=== PATIENT | female | born 1980 | race Caucasian/White ===

== ENCOUNTER → 2016-10-21 | Outpatient (CLI) | payer MEDICAID | END | disposition home or self-care (01) | LOC: LABWHC1 17:10 | PROVIDERS: ATTEND Psychiatry & Neurology Neurology | DX: Z00.8 Encounter for other general examination (principal); T45.1X5D Adverse effect of antineoplastic and immunosuppressive drugs, subsequent encounter | CPT/HCPCS: 36415; 86480 ==

== ENCOUNTER → 2016-11-28 | Outpatient (CLI) | payer MEDICAID ==
[2016-11-28 17:02] LABS: Basophils # (A) 0.1 k/uL (0-0.2); Basophils % (A) 1 %; CH 29.1; CHCM 32.2; Eosinophils # (A) 0.1 k/uL (0-0.7); Eosinophils % (A) 1 %; HCT 42.5 % (34.0-46.0); HDW 2.43; HGB 13.5 gm/dL (11.4-16.0); Luc # (Auto) 0.17; Luc % (Auto) 2; Lymphocytes # (A) 2.5 k/uL (1.0-4.8); Lymphocytes % (A) 34 %; MCH 28.7 pg (25.0-35.0); MCHC 31.7 g/dL (31.0-37.0); MCV 90.7 fL (80.0-100.0); Mean Platelet Volume 6.3; Monocytes # (A) 0.4 k/uL (0-1.0); Monocytes % (A) 6 %; Neutrophils # (A) 4.1 k/uL (1.3-7.7); Neutrophils % (A) 56 %; RBC 4.69 m/uL (3.80-5.40); RDW 12.9 % (11.5-15.5); WBC 7.4 k/uL (3.8-10.6); WBC (Perox) 7.84
[2016-11-28 17:21] LABS: ALT 27 U/L (9-52); AST 17 U/L (14-36); Alkaline Phosphatase 80 U/L (38-126); Anion Gap 13 mmol/L; Blood Urea Nitrogen 15 mg/dL (7-17); Calcium 9.8 mg/dL (8.4-10.2); Carbon Dioxide 24 mmol/L (22-30); Chloride 105 mmol/L (98-107); Glucose 95 mg/dL (74-99); Non-African American GFR(MDRD) >60 (>60 ml/min/1.73 sqM); Potassium 4.2 mmol/L (3.5-5.1); Sodium 142 mmol/L (137-145); Total Bilirubin 0.6 mg/dL (0.2-1.3); Total Protein 8.2 g/dL (6.3-8.2)
== END ==
LOC: LABWHC1 16:43
PROVIDERS: ATTEND Psychiatry & Neurology Neurology
DX: Z51.81 Encounter for therapeutic drug level monitoring (principal); Z79.899 Other long term (current) drug therapy
CPT/HCPCS: 36415; 80053; 85025

== ENCOUNTER → 2016-12-31 | Outpatient (CLI) | payer MEDICAID ==
[2016-12-31 17:33] LABS: CH 28.9; CHCM 32.7; HCT 40.7 % (34.0-46.0); HGB 13.3 gm/dL (11.4-16.0); MCHC 32.7 g/dL (31.0-37.0); MCV 88.6 fL (80.0-100.0); Mean Platelet Volume 6.6; RBC 4.59 m/uL (3.80-5.40); RDW 13.3 % (11.5-15.5); WBC 8.4 k/uL (3.8-10.6)
--- NOTE | 2016-12-31 17:39 | XR ---
EXAMINATION TYPE: XR chest 2V DATE OF EXAM: 12/31/2016 5:14 PM COMPARISON: NONE HISTORY: New medication for MS. Chest pain. TECHNIQUE: Frontal and lateral views of the chest are obtained. FINDINGS: Heart and mediastinum are normal. Lungs are clear. Diaphragm is normal. Bony thorax and so ft tissues appear normal. IMPRESSION: Normal chest
[2016-12-31 17:42] LABS: ALT 24 U/L (9-52); AST 17 U/L (14-36)
== END | disposition home or self-care (01) ==
LOC: RADXRMAIN 16:55
PROVIDERS: ATTEND Psychiatry & Neurology Neurology
DX: T50.905A Adverse effect of unspecified drugs, medicaments and biological substances, initial encounter (principal)
CPT/HCPCS: 71020; 84450; 84460; 85027

== ENCOUNTER → 2017-01-31 | Outpatient (CLI) | payer MEDICAID ==
[2017-01-31 11:21] LABS: CH 28.9; CHCM 32.5; HCT 41.3 % (34.0-46.0); HDW 2.52; HGB 13.7 gm/dL (11.4-16.0); MCH 29.7 pg (25.0-35.0); MCHC 33.2 g/dL (31.0-37.0); MCV 89.5 fL (80.0-100.0); Mean Platelet Volume 6.1; RBC 4.61 m/uL (3.80-5.40); RDW 13.1 % (11.5-15.5); WBC 6.4 k/uL (3.8-10.6)
[2017-01-31 11:39] LABS: ALT 26 U/L (9-52); AST 16 U/L (14-36)
== END | disposition home or self-care (01) ==
LOC: LABWHC1 10:40
PROVIDERS: ATTEND Psychiatry & Neurology Neurology
DX: T78.8XXA Other adverse effects, not elsewhere classified, initial encounter (principal)
CPT/HCPCS: 36415; 84450; 84460; 85027

== ENCOUNTER → 2017-03-13 | Outpatient (CLI) | payer MEDICAID ==
[2017-03-13 16:29] LABS: CH 29.2; CHCM 31.5; HCT 40.9 % (34.0-46.0); HDW 2.35; HGB 12.8 gm/dL (11.4-16.0); MCH 29.1 pg (25.0-35.0); MCHC 31.2 g/dL (31.0-37.0); MCV 93.3 fL (80.0-100.0); Mean Platelet Volume 6.8; RBC 4.39 m/uL (3.80-5.40); RDW 13.8 % (11.5-15.5); WBC 7.3 k/uL (3.8-10.6)
[2017-03-13 16:46] LABS: ALT 36 U/L (9-52); AST 20 U/L (14-36)
== END | disposition home or self-care (01) ==
LOC: LABWHC1 16:17
PROVIDERS: ATTEND Psychiatry & Neurology Neurology
DX: T45.1X5S Adverse effect of antineoplastic and immunosuppressive drugs, sequela (principal)
CPT/HCPCS: 36415; 84450; 84460; 85027

== ENCOUNTER → 2017-04-14 | Outpatient (CLI) | payer MEDICAID ==
[2017-04-14 10:33] LABS: CH 28.9; HCT 40.2 % (34.0-46.0); HDW 2.31; HGB 12.9 gm/dL (11.4-16.0); MCH 29.2 pg (25.0-35.0); MCHC 32.1 g/dL (31.0-37.0); Mean Platelet Volume 6.9; RBC 4.41 m/uL (3.80-5.40); RDW 13.3 % (11.5-15.5); WBC 6.6 k/uL (3.8-10.6)
[2017-04-14 10:38] LABS: ALT 27 U/L (9-52); AST 16 U/L (14-36)
== END | disposition home or self-care (01) ==
LOC: LABWHC1 10:04
PROVIDERS: ATTEND Psychiatry & Neurology Neurology
DX: T45.1X5A Adverse effect of antineoplastic and immunosuppressive drugs, initial encounter (principal)
CPT/HCPCS: 36415; 84450; 84460; 85027

== ENCOUNTER → 2017-06-12 | Outpatient (CLI) | payer MEDICAID ==
--- NOTE | 2017-06-15 12:21 | MR ---
EXAMINATION TYPE: MR brain wo/w con DATE OF EXAM: 06/12/2017 COMPARISON: 06/14/2015 HISTORY: MS follow up to check on response to medication TECHNIQUE: Multiplanar, multisequence images of the brain and brainstem is performed without and with IV contras t, utilizing 9 mL intravenous Gadavist . FINDINGS: There is no evidence of acute ischemia. Area of abnormal signal within the left parietal occipital junction is stable from the previous exam. Changes of chronic sinusitis. Intraorbital structures have a normal appearance. Midline structures. C raniocervical junction maintained. Sella turcica has a normal appearance. There is no enhancing lesions or mass. Basilar artery is somewhat diminutive in size. Cavernous sinus enhances normally. Dural venous sinuses enhance normally. White matter: Small focus of abnormal signal in the left temporal lobe is stable. No other sizable ar eas of abnormal signal within the visualized white matter. IMPRESSION: 1. Area of abnormal signal involving the left parietal occipital junction is stable. Differential steven gnosis would include demyelinating disease. Remote ischemia also a consideration as there may be slig ht ex vacuo dilation of the lateral ventricle 2. Single less than 5 mm nonspecific area of abnormal white matter signal in the left temporal lobe i s stable. No enhancing lesions or masses. 3. Changes of chronic sinusitis.
== END | disposition home or self-care (01) ==
LOC: RADMRIMAIN 20:58
PROVIDERS: ATTEND Psychiatry & Neurology Neurology
DX: R90.82 White matter disease, unspecified (principal); R93.0 Abnormal findings on diagnostic imaging of skull and head, not elsewhere classified; G35 Multiple sclerosis
CPT/HCPCS: 70553; A9581

== ENCOUNTER → 2017-11-21 | Outpatient (CLI) | payer MEDICAID ==
[2017-11-21 08:40] LABS: ALT 24 U/L (9-52); AST 16 U/L (14-36); Cholesterol 182 mg/dL (<200); Glucose 90 mg/dL (74-99); HDL Cholesterol 62 mg/dL (40-60); LDL Cholesterol,Calculated 108 mg/dL (0-99); Triglycerides 61 mg/dL (<150)
== END | disposition home or self-care (01) ==
LOC: LABWHC1 07:50
PROVIDERS: ATTEND Psychiatry & Neurology Neurology
DX: H35.60 Retinal hemorrhage, unspecified eye (principal); G35 Multiple sclerosis; Z79.899 Other long term (current) drug therapy
CPT/HCPCS: 36415; 80061; 82947; 84450; 84460

== ENCOUNTER → 2018-11-19 | Outpatient (CLI) | payer MEDICAID ==
--- NOTE | 2018-11-19 16:09 | US ---
EXAMINATION TYPE: US pelvic complete DATE OF EXAM: 11/19/2018 COMPARISON: NONE CLINICAL HISTORY: K52.9 Chronic diarrhea. TECHNIQUE: Transabdominal (TA). Date of LMP: 11/09/2018 EXAM MEASUREMENTS: Uterus: 9.1 X 5.3 X 6.4 cm Endometrial Stripe: 0.8 cm Right Ovary: 3.1 X 1.6 X 2.9 cm Left Ovary: 3.2 X 3.1 X 2.7 cm 1. Uterus: Anteverted small posterior fibroid measures 1.3 x 1.1 x 1.4 cm 2. Endometrium: wnl 3. Right Ovary: wnl 4. Left Ovary: wnl 5. Bilateral Adnexa: wnl 6. Posterior cul-de-sac: no free fluid IMPRESSION: 1. Small uterine fibroid.
--- NOTE | 2018-11-19 16:15 | US ---
EXAMINATION TYPE: US abdomen complete DATE OF EXAM: 11/19/2018 COMPARISON: NONE CLINICAL HISTORY: K52.9 Chronic diarrhea. EXAM MEASUREMENTS: Liver Length: 14.0 cm Gallbladder Wall: 0.2 cm CBD: 0.6 cm Spleen: 11.1 cm Right Kidney: 10.8 x 5.5 x 5.9 cm Left Kidney: 10.7 x 6.3 x 5.5 cm Pancreas: wnl Liver: wnl Gallbladder: No stones seen Evidence for sonographic Mckeon's sign: No CBD: wnl Spleen: wnl Right Kidney: No hydronephrosis or masses seen Left Kidney: No hydronephrosis or masses seen Upper IVC: wnl Abd Aorta: wnl IMPRESSION: 1. Abdomen ultrasound as visualized is unremarkable.
== END | disposition home or self-care (01) ==
LOC: RADUSWWP 06:56
PROVIDERS: ATTEND Family Medicine
DX: D25.9 Leiomyoma of uterus, unspecified (principal); K52.9 Noninfective gastroenteritis and colitis, unspecified
CPT/HCPCS: 76700; 76856

== ENCOUNTER → 2019-02-26 | Outpatient (CLI) | payer MEDICAID ==
[2019-02-26 11:08] LABS: Basophils # (A) 0.1 k/uL (0-0.2); Basophils % (A) 1 %; Eosinophils # (A) 0.1 k/uL (0-0.7); Eosinophils % (A) 2 %; HCT 40.3 % (34.0-46.0); HGB 12.4 gm/dL (11.4-16.0); Lymphocytes # (A) 1.8 k/uL (1.0-4.8); Lymphocytes % (A) 35 %; MCH 28.3 pg (25.0-35.0); MCHC 30.8 g/dL (31.0-37.0); MCV 91.8 fL (80.0-100.0); Mean Platelet Volume 6.6; Monocytes # (A) 0.3 k/uL (0-1.0); Monocytes % (A) 6 %; Neutrophils # (A) 2.7 k/uL (1.3-7.7); Neutrophils % (A) 54 %; Platelet Count 323 k/uL (150-450); RBC 4.39 m/uL (3.80-5.40); RDW 13.7 % (11.5-15.5)
[2019-02-26 16:07] LABS: Albumin 4.4 g/dL (3.80-4.90); Albumin/Globulin Ratio 2.32 (1.60-3.17); Anion Gap 4.9 mmol/L (4.00-12.00); Calcium 9.4 mg/dL (8.7-10.3); Carbon Dioxide 24.1 mmol/L (21.6-31.8); Globulin 1.9 g/dL (1.6-3.3); Potassium 4.1 mmol/L (3.5-5.5); Total Bilirubin 0.5 mg/dL (0.3-1.2); Total Protein 6.3 g/dL (6.2-8.2)
== END | disposition home or self-care (01) ==
LOC: LABWHC1 10:36
PROVIDERS: ATTEND Psychiatry & Neurology Neurology
DX: G35 Multiple sclerosis (principal); E55.9 Vitamin D deficiency, unspecified; T50.905A Adverse effect of unspecified drugs, medicaments and biological substances, initial encounter
CPT/HCPCS: 36415; 80053; 82306; 82607; 85025

== ENCOUNTER → 2019-07-19 | Outpatient (CLI) | payer MEDICAID ==
[2019-07-19 13:38] VITALS: BP 100/61; PULSE 73; RESP 16; TEMP 97.8; BMI 27.7
--- NOTE | 2019-07-19 14:31 | P.HPOB ---
History of Present Illness H&P Date: 07/19/19 Chief Complaint: The patient is here for her routine gynecologic exam and ma mmogram. This is a 39-year-old with an LMP of 07/05/2019. Her is status post vasectomy. The patient is here to establish with this office. Her last pelvic exam was about 2014. She is complaining of heavier menstrual flow on days 3 and 4 of her menstrual period and she becomes very fatigued on these days. Menses are regular every month lasting 6 days. She does occasionally pass clots. She is otherwise without complaints. Review of Systems The patient has lost 14 pounds over the last year with dietary changes. She denies respiratory, cardiac, or G.I. problems. Past Medical History Additional Past Medical History / Comment(s): Multiple sclerosis. Menstrually related migraine headaches. Mitral valve prolapse. 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 She has no other history of STDs. Uterine fibroid measuring 1.4 cm(11/19/18). History of Any Multi-Drug Resistant Organisms: None Reported Past Surgical History: Breast Surgery Additional Past Surgical History / Comment(s): Breast biopsies. Past Psychological History: No Psychological Hx Reported Smoking Status: Never smoker Past Alcohol Use History: None Reported Past Drug Use History: None Reported Additional History: She has been since 2009. 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 - Past Family History Sister(s) Family Medical History: Cancer Additional Family Medical History / Comment(s): Brain cancer. Father Family Medical History: Diabetes Mellitus Additional Family Medical History / Comment(s): Paternal grandmother had a gynecologic cancer, either cervical cancer or ovarian cancer. Mother Family Medical History: Hyperlipidemia Medications and Allergies Home Medications Medication Instructions Recorded Confirmed Type Amoxicillin 500 mg PO DAILY PRN 07/19/19 07/19/19 History Baclofen 10 mg PO HS 07/19/19 07/19/19 History Cholecalciferol (Vitamin D3) 2,000 unit PO DAILY 07/19/19 07/19/19 History [Vitamin D3] Ibuprofen 800 mg PO DAILY 07/19/19 07/19/19 History Propranolol [Inderal] 20 mg PO BID 07/19/19 07/19/19 History Teriflunomide [Aubagio] 7 mg PO DAILY 07/19/19 07/19/19 History Topiramate [Topamax] 50 mg PO HS 07/19/19 07/19/19 History Zquil 1 tab PO HS 07/19/19 07/19/19 History Allergies Allergy/AdvReac Type Severity Reaction Status Date / Time No Known Allergies Allergy Unverified 07/19/19 13:38 Exam Vital Signs Temp Pulse Resp BP Pulse Ox 07/19/19 13:32 97.8 F 73 16 100/61 100 Intake and Output 07/18/19 07/19/19 07/19/19 22:59 06:59 14:59 Other: Weight 90.265 kg Height 5 feet 11 inches, weight 199 pounds, BMI 27.8. This is a well-developed well-nourished white female who is alert and oriented times 3 in no acute distress. HEENT: Within normal limits. NECK: Supple without mass or thyromegaly. CHEST AND LUNGS: Clear to auscultation. HEART: Regular rate and rhythm. BREASTS: Are without mass or discharge. AXILLARY EXAM: Negative for adenopathy. BACK: Negative for CVA tenderness. ABDOMEN: Soft, nontender, without palpable masses. PELVIC EXAM: Normal external genitalia. Cervix and vagina appear normal. There is no unusual discharge. There is no evidence of prolapse. The uterus is anteverted, nongravid size and nontender. There are no palpable adnexal masses or tenderness. RECTAL EXAM: negative for mass or tenderness and is negative for occult blood. EXTREMITIES: Nontender. Additional studies: Pelvic ultrasound done on 11/19/2018 showed a 1.4 cm uterine fibroid. IMPRESSION: 1. 39-year-old female whose is status post vasectomy with normal gynecologic exam. 2. Mild hypermenorrhea with resulting fatigue on the heavy flow days. 3. History of uterine fibroid. PLAN: 1. Pap smear was performed. 2. Self breast awareness was discussed with the patient. 3. Screening mammogram will be done today. 4. Trial of meclofenamate sodium 100 mg by mouth 3 times a day when necessary for heavy menstrual flow off to 6 days per cycle. The prescription will be sent to [facility]. If after 3 months she is not noticing significant improvement, she was instructed to call and we can tell about other options including endometrial ablation. 5. We have discussed the option of endometrial ablation. The ACOG FAQ handout on endometrial ablation will be given to the patient. 6. She was advised to return in one year for her annual well woman exam.
--- NOTE | 2019-07-21 10:54 | MM ---
Reason for exam: screening (asymptomatic). Last mammogram was performed 5 years and 4 months ago. History: Family history of breast cancer. Benign US RT VAD breast biopsy of the right breast, August 29, 2013. Benign US LT VAD breast biopsy of the left breast, August 29, 2013. Benign excisional biopsy of the right breast, July 25, 1998. Took hormonal contraceptives for 15 years beginning at age 16. Physical Findings: A clinical breast exam by your physician is recommended on an annual basis and results should be correlated with mammographic findings. MG Screening Mammo w CAD Bilateral CC, MLO, and XCCL view(s) were taken. Prior study comparison: March 22, 2014, bilateral MG diagnostic mammo w CAD TIFFANIE. August 15, 2013, CAD bilateral diagnostic mammogram. The breast tissue is extremely dense which could obscure a lesion on mammography. Previous mammotome biopsy in the left breast. No significant changes when compared with prior studies. ASSESSMENT: Benign, BI-RAD 2 RECOMMENDATION: Routine screening mammogram of both breasts in 1 year.
--- NOTE | 2019-07-26 18:37 | P.PN ---
Progress Note - Text Progress Note Date: 07/26/19 OUTPATIENT FOLLOW-UP NOTE TEST(S)/RESULTS: test results from 07/19/2019 include negative Pap smear and benign mammogram. METHOD OF NOTIFICATION: the patient was notified by phone. PATIENT COMMENTS: the patient is happy to hear these results. DIAGNOSIS: negative Pap smear and benign mammogram. DISCUSSION: PLAN: the patient is to return in one year for her annual well woman exam.
== END | disposition home or self-care (01) ==
LOC: WWCWWP 13:12
PROVIDERS: ATTEND Obstetrics & Gynecology
DX: Z12.31 Encounter for screening mammogram for malignant neoplasm of breast (principal)
CPT/HCPCS: 77067

== ENCOUNTER → 2019-07-29 | Outpatient (CLI) | payer MEDICAID ==
--- NOTE | 2019-07-30 15:16 | MR ---
EXAMINATION TYPE: MR brain/cspine wo/w DATE OF EXAM: 07/29/2019 COMPARISON: MR scan of the brain 06/12/2017 MRI scan cervical spine 04/20/2012 HISTORY: MS / Syrinx TECHNIQUE: Multiplanar, multisequence images of the brain and brainstem is performed without and with IV contras t, utilizing 9 mL intravenous Gadavist . FINDINGS: Ventricles have fairly normal size. There is no mass effect nor midline shift. There is inc reased signal in the jamison-white matter of the left occipital lobe that measures 4 x 3 cm on the T2 an d FLAIR images. This is consistent with infarct. The internal capsule appears fairly normal. The brai nstem is intact. Cerebellum is intact. Left occipital lobe cortex show slight increased signal on the diffusion images. Contrast images show no pathologic enhancement. There is normal contrast opacification of the venous sinuses. Orbits appear normal. Cervical vertebra have normal spacing and alignment. Posterior elements are intact. There is a 2 cm l meryc syrinx in the lower cervical spinal cord extending from C5 to C7. Syrinx has 3 mm diameter. There is no evidence of underlying mass. There may be of the cervical cord has fairly normal signal patter n. There is a small posterior disc bulge at C5-6. There is developmentally adequate canal and no spin al stenosis. Spinal canal measures 11 mm at C5-6. I see no focal bone destruction. Contrast images show no pathologic enhancement of the cervical spine. Delayed images show no pathologic enhancement of the brain. 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 There is a small syrinx of the lower cervical spinal cord unchanged compared to old exam. I do not se e evidence for demyelinating disease.
== END | disposition home or self-care (01) ==
LOC: RADMRIMAIN 16:46
PROVIDERS: ATTEND Psychiatry & Neurology Neurology
DX: G95.0 Syringomyelia and syringobulbia (principal); G35 Multiple sclerosis
CPT/HCPCS: 70553; 72156; A9585

== ENCOUNTER → 2019-08-08 | Outpatient (CLI) | payer MEDICAID ==
[2019-08-08 10:36] LABS: Basophils % (A) 1 %; Eosinophils # (A) 0.1 k/uL (0-0.7); Eosinophils % (A) 2 %; HCT 39.9 % (34.0-46.0); HGB 12.6 gm/dL (11.4-16.0); Lymphocytes # (A) 1.5 k/uL (1.0-4.8); Lymphocytes % (A) 37 %; MCH 29.4 pg (25.0-35.0); MCHC 31.6 g/dL (31.0-37.0); MCV 92.8 fL (80.0-100.0); Mean Platelet Volume 6.2; Monocytes # (A) 0.2 k/uL (0-1.0); Monocytes % (A) 6 %; Neutrophils # (A) 2.1 k/uL (1.3-7.7); Neutrophils % (A) 52 %; Platelet Count 319 k/uL (150-450); RDW 13.1 % (11.5-15.5); WBC 4.1 k/uL (3.8-10.6)
[2019-08-08 16:56] LABS: African American GFR (CKD) 92.7 (60.0-200.0); Albumin 4.4 g/dL (3.80-4.90); Albumin/Globulin Ratio 2.32 (1.60-3.17); Anion Gap 5.4 mmol/L (4.00-12.00); BUN/Creat Ratio 13.33 Ratio (12.00-20.00); Calcium 9.2 mg/dL (8.7-10.3); Carbon Dioxide 23.6 mmol/L (21.6-31.8); Globulin 1.9 g/dL (1.6-3.3); Potassium 4.2 mmol/L (3.5-5.5); Total Bilirubin 0.5 mg/dL (0.2-1.2); Total Protein 6.3 g/dL (6.2-8.2)
== END | disposition home or self-care (01) ==
LOC: LABWHC1 10:00
PROVIDERS: ATTEND Psychiatry & Neurology Neurology
DX: G35 Multiple sclerosis (principal); Z79.899 Other long term (current) drug therapy
CPT/HCPCS: 36415; 80053; 85025

== ENCOUNTER → 2020-04-19 | Outpatient (CLI) | payer MEDICAID ==
[2020-04-19 17:16] LABS: African American GFR (CKD) 81.6 (60.0-200.0); Anion Gap 7.8 mmol/L (4.00-12.00); Calcium 9.7 mg/dL (8.7-10.3); Carbon Dioxide 26.2 mmol/L (21.6-31.8); Chol/HDL Ratio 3.43; LDL Cholesterol,Calculated 106.4 mg/dL (0.0-131.0); Non-African American GFR(CKD) 70.4 (60.0-200.0); Potassium 4.2 mmol/L (3.5-5.5); VLDL Calculation 17.6 mg/dL (5.00-40.00)
== END | disposition home or self-care (01) ==
LOC: LABWHC1 07:14
PROVIDERS: ATTEND Physician Assistant
DX: I47.1 Supraventricular tachycardia (principal); I74.09 Other arterial embolism and thrombosis of abdominal aorta; R00.2 Palpitations; Z82.49 Family history of ischemic heart disease and other diseases of the circulatory system
CPT/HCPCS: 36415; 80048; 80061; 84443

== ENCOUNTER → 2020-07-13 | Outpatient (CLI) | payer MEDICAID ==
--- NOTE | 2020-07-13 12:39 | US ---
EXAMINATION TYPE: US thyroid st tissue head/neck DATE OF EXAM: 07/13/2020 COMPARISON: NONE CLINICAL HISTORY: E04.1 Thyroid nodule. GLAND SIZE: Right Lobe: 4.6 x 1.2 x 1.4 cm Overall Parenchyma: homogenous Left Lobe: 4.8 x 0.8 x 1.3 cm Overall Parenchyma: homogeneous Isthmus Thickness: 0.3 cm NODULES RIGHT: # of nodules measured on right: 2 1. 1.1 X 0.7 x 1.1 cm hypoechoic mixed nodule at the lower pole with well-defined margins; . This nodule is wider than tall and shows intranodular vascularity. Prior size: no previous 2. 0.8 X 0.5 x 0.7 cm hypoechoic mixed nodule at the mid pole with well-defined margins; . This nod ule is wider than tall and shows intranodular vascularity. Prior size: no previous LEFT: # of nodules measured on left: 2 1. 0.7 X 0.4 x 0.5 cm hypoechoic mixed nodule at the upper pole with well-defined margins; . This nodule is wider than tall and shows intranodular vascularity. Prior size: no previous 2. 1.1 X 0.5 x 1.0 cm hypoechoic mixed nodule at the mid pole with well-defined margins; . This nod ule is wider than tall and shows intranodular vascularity. Prior size: no previous ISTHMUS: # of nodules measured in the isthmus: 0 Bilateral neck scanned, no evidence of lymphadenopathy. IMPRESSION: 1 cm nodules with additional subcentimeter nodules within the bilateral thyroid lobes
== END | disposition home or self-care (01) ==
LOC: RADUSWWP 12:09
PROVIDERS: ATTEND Family Medicine
DX: E04.2 Nontoxic multinodular goiter (principal)
CPT/HCPCS: 76536

== ENCOUNTER → 2020-10-01 | Outpatient (CLI) | payer MEDICAID ==
--- NOTE | 2020-10-02 02:44 | MR ---
EXAMINATION TYPE: MR brain wo con DATE OF EXAM: 10/01/2020 COMPARISON: 07/29/2019 HISTORY: MS 1 year follow-up Multiplanar multiecho imaging of the brain was performed without contrast. There is abnormal increased signal in the jamison and white matter left occipital lobe on T2 and FLAIR a nd diffusion images without mass effect. There is some prominence of the sulci left occipital lobe. D iffusion images show increased signal around the occipital horn of the left lateral ventricle. There is no midline shift. There is no sign of intracranial hemorrhage. The brainstem is intact. Corpus lisa losum appears normal. Sella turcica appears normal. The remainder of exam is unremarkable. IMPRESSION: Exam shows evidence of an old left occipital lobe infarct without change in appearance compared to ol d exam. No evidence of an acute infarct. Mild encephalomalacia left occipital lobe. No evidence of de myelinating disease.
== END | disposition home or self-care (01) ==
LOC: RADMRIMAIN 17:22
PROVIDERS: ATTEND Psychiatry & Neurology Neurology
DX: G93.89 Other specified disorders of brain (principal); G35 Multiple sclerosis; Z86.73 Personal history of transient ischemic attack (TIA), and cerebral infarction without residual deficits
CPT/HCPCS: 70551

== ENCOUNTER → 2020-11-13 | Outpatient (CLI) | payer MEDICAID ==
--- NOTE | 2020-11-14 10:25 | XR ---
EXAMINATION TYPE: XR hand limited RT DATE OF EXAM: 11/13/2020 COMPARISON: NONE HISTORY: Pain middle digit with swelling TECHNIQUE: Two views are submitted. FINDINGS: The osseous structures are intact. The joint spaces are preserved and there is no acute fracture or dislocation. IMPRESSION: 1. No definite acute fracture or dislocation if symptoms persist, follow-up study in 7 to 10 days wo uld be suggested
== END | disposition home or self-care (01) ==
LOC: RADXRMAIN 15:56
PROVIDERS: ATTEND Family Medicine
DX: M79.641 Pain in right hand (principal); M79.89 Other specified soft tissue disorders

== ENCOUNTER → 2020-11-27 | Outpatient (CLI) | payer MEDICAID ==
--- NOTE | 2020-11-29 11:41 | MM ---
Reason for exam: screening (asymptomatic). Last mammogram was performed 1 year and 4 months ago. History: Family history of breast cancer. Benign US RT VAD breast biopsy of the right breast, August 29, 2013. Benign US LT VAD breast biopsy of the left breast, August 29, 2013. Benign excisional biopsy of the right breast, July 25, 1998. Took hormonal contraceptives for 15 years beginning at age 16. Physical Findings: A clinical breast exam by your physician is recommended on an annual basis and results should be correlated with mammographic findings. MG Screening Mammo w CAD Bilateral CC and MLO view(s) were taken. Prior study comparison: July 19, 2019, bilateral MG screening mammo w CAD. March 22, 2014, bilateral MG diagnostic mammo w CAD TIFFANIE. The breast tissue is heterogeneously dense. This may lower the sensitivity of mammography. Previous mammotome biopsy in the left breast. There is chronic nodularity in the left breast. No significant changes when compared with prior studies. ASSESSMENT: Benign, BI-RAD 2 RECOMMENDATION: Routine screening mammogram of both breasts in 1 year.
== END ==
LOC: RADMAMWWP 07:23
PROVIDERS: ATTEND Family Medicine
DX: Z12.31 Encounter for screening mammogram for malignant neoplasm of breast (principal); Z80.3 Family history of malignant neoplasm of breast
CPT/HCPCS: 77067

== ENCOUNTER → 2021-03-26 | Outpatient (CLI) | payer MEDICAID ==
--- NOTE | 2021-03-26 17:28 | US ---
EXAMINATION TYPE: US thyroid st tissue head/neck DATE OF EXAM: 03/26/2021 COMPARISON: US 07/13/2020 CLINICAL HISTORY: E04.2 Nontoxic multinodular goiter. GLAND SIZE: Right Lobe: 5.0 x 1.6 x 1.3 cm Overall Parenchyma: homogenous Left Lobe: 4.9 x 0.9 x 1.5 cm Overall Parenchyma: homogeneous Isthmus Thickness: 0.2 cm NODULES RIGHT: # of nodules measured on right: 2 1. 2.0 x 0.6 x 0.7 cm, mid lateral, mixed cystic and solid, hypoechoic nodule, which is wider than tall, with ill-defined margins, without echogenic foci. Prior size: 0.8 x 0.5 x 0.7 cm 2. 1.3 X 0.8 x 1.2 cm, upper medial, mixed cystic and solid, hypoechoic nodule, which is wider than tall, with smooth margins, without echogenic foci. Prior size: 1.1 x 0.7 x 1.1 cm LEFT: # of nodules measured on left: 2 1. 1.3 X 0.5 x 0.7 cm, mid medial, mixed cystic and solid, hypoechoic nodule, which is wider than t all, with smooth margins, without echogenic foci. Prior size: 1.1 x 0.5 x 1.0 cm 2. 0.7 X 0.5 x 0.6 cm, upper lateral, mixed cystic and solid, hypoechoic nodule, which is wider th an tall, with smooth margins, without echogenic foci. Prior size: 0.7 x 0.4 x 0.5 cm ISTHMUS: # of nodules measured in the isthmus: 0 Bilateral neck scanned, no evidence of lymphadenopathy. IMPRESSION: 1.Bilateral mixed cystic/solid thyroid nodules. 2. Both thyroid nodules of the right lobe are larger than prior exam. Due to interval increase in siz e, ultrasound-guided percutaneous fine-needle aspiration nodules on the right lobe are recommended. T he largest is 2 cm. This is within criteria for ultrasound-guided fine-needle aspiration biopsy. 3. the left thyroid nodules are relatively stable since prior exam. 2017 ACR TI-RADS LEVEL: 4 *Highest TI-RADS level nodule reported
== END | disposition home or self-care (01) ==
LOC: RADUSWWP 12:13
PROVIDERS: ATTEND Internal Medicine
DX: E04.2 Nontoxic multinodular goiter (principal)
CPT/HCPCS: 76536

== ENCOUNTER → 2021-06-26 | Outpatient (CLI) | payer MEDICAID ==
--- NOTE | 2021-06-26 12:08 | MM ---
Reason for exam: clinical finding. Last mammogram was performed 7 months ago. History: Family history of breast cancer. Benign US RT VAD breast biopsy of the right breast, August 29, 2013. Benign US LT VAD breast biopsy of the left breast, August 29, 2013. Benign excisional biopsy of the right breast, July 25, 1998. Took hormonal contraceptives for 15 years beginning at age 16. Physical Findings: Nurse Summary: 1.5cm nodule in the right breast (nurse dw). MG 3D Diag Mammo W/Cad RT CC and MLO view(s) were taken of the right breast. Prior study comparison: November 27, 2020, bilateral MG screening mammo w CAD. July 19, 2019, bilateral MG screening mammo w CAD. The breast tissue is heterogeneously dense. This may lower the sensitivity of mammography. There is no discrete abnormality including area of concern. These results were verbally communicated with the patient and result sheet given to the patient on 06/26/21. ASSESSMENT: Incomplete: need additional imaging evaluation, BI-RAD 0 RECOMMENDATION: Ultrasound of the right breast. Manage patient on a clinical basis.
--- NOTE | 2021-06-26 12:10 | USB ---
Reason for exam: additional evaluation requested from abnormal screening. History: Family history of breast cancer. Benign US RT VAD breast biopsy of the right breast, August 29, 2013. Benign US LT VAD breast biopsy of the left breast, August 29, 2013. Benign excisional biopsy of the right breast, July 25, 1998. Took hormonal contraceptives for 15 years beginning at age 16. US Breast Limited RT Right limited breast ultrasound including focal area of concern, retroareolar and axilla demonstrates a 1.2 x 1.1 x 1.2cm hypoechoic lesion at 11 o'clock. These results were verbally communicated with the patient and result sheet given to the patient on 06/26/21. ASSESSMENT: Suspicious, BI-RAD 4 RECOMMENDATION: Ultrasound core biopsy of the right breast. Called Dr. Johnna Knowles's office with mammographic findings and has scheduled an appointment for the patient for 07/17/21 at 4:[address] Knowles. Biopsy scheduled for 07/10/21 at 7:00. PRELIMINARY REPORT CALLED AND FAXED TO DR. KNOWLES ON 06/26/21.
== END | disposition home or self-care (01) ==
LOC: RADMAMWWP 08:46
PROVIDERS: ATTEND Family Medicine
DX: N63.11 Unspecified lump in the right breast, upper outer quadrant (principal)
CPT/HCPCS: 77061; 77065

== ENCOUNTER → 2021-07-10 | Outpatient (CLI) | payer MEDICAID ==
[2021-07-10 11:42] LABS: Basophils # (A) 0.06 X 10*3/uL (0.00-0.10); Basophils % (A) 0.9 %; Eosinophils # (A) 0.11 X 10*3/uL (0.04-0.35); Eosinophils % (A) 1.7 %; HCT 40.8 % (37.2-46.3); HGB 13.2 g/dL (12.0-15.0); Lymphocytes % (A) 35.4 %; MCH 30.6 pg (27.0-32.0); MCHC 32.4 g/dL (32.0-37.0); MCV 94.7 fL (80.0-97.0); Mean Platelet Volume 9.3 fL (9.5-12.2); Monocytes # (A) 0.52 X 10*3/uL (0.20-1.00); Neutrophils # (A) 3.49 X 10*3/uL (1.80-7.70); Neutrophils % (A) 53.8 %; Platelet Count 319 X 10*3/uL (140-440); RBC 4.31 X 10*6/uL (4.10-5.20); RDW 12.9 % (11.5-14.5); WBC 6.49 X 10*3/uL (4.50-10.00)
[2021-07-10 17:46] LABS: African American GFR (CKD) 90.4 (60.0-200.0); Albumin 4.5 g/dL (3.8-4.9); Albumin/Globulin Ratio 2.01 (1.60-3.17); Anion Gap 13.5 mmol/L (4.00-12.00); BUN/Creat Ratio 14.21 Ratio (12.00-20.00); Blood Urea Nitrogen 12.9 mg/dL (9.0-27.0); Calcium 9.2 mg/dL (8.7-10.3); Carbon Dioxide 19.3 mmol/L (21.6-31.8); Chol/HDL Ratio 3.15 Ratio; Globulin 2.2 g/dL (1.6-3.3); HDL Cholesterol 55.3 mg/dL (40.00-60.00); LDL Cholesterol,Calculated 104.3 mg/dL (0.0-131.0); Potassium 4.3 mmol/L (3.5-5.5); Total Bilirubin 0.2 mg/dL (0.30-1.20); Total Protein 6.7 g/dL (6.2-8.2); Triglycerides 71.9 mg/dL (0.00-149.00); VLDL Calculation 14.38 mg/dL (5.00-40.00)
== END | disposition home or self-care (01) ==
LOC: LABWHC1 07:03
PROVIDERS: ATTEND Physician Assistant Medical
DX: Z00.01 Encounter for general adult medical examination with abnormal findings (principal); I49.3 Ventricular premature depolarization; I34.8 Other nonrheumatic mitral valve disorders; G35 Multiple sclerosis; E04.2 Nontoxic multinodular goiter
CPT/HCPCS: 36415; 80053; 80061; 84443; 85025

== ENCOUNTER → 2021-07-10 | Day surgery (SDC) | payer MEDICAID ==
[2021-07-10 07:21] VITALS: RESP 16
[2021-07-10 09:21] VITALS: BP 103/69; PULSE 52; TEMP 98
--- NOTE | 2021-07-10 13:01 | USB ---
EXAMINATION TYPE: US biopsy breast VAD RT DATE OF EXAM: 07/10/2021 CLINICAL HISTORY: N63. lump/mass. TECHNIQUE: Ultrasound guided vaccuum assisted core biopsy of right breast. COMPARISON: 06/26/2021 FINDINGS: The ultrasound guided core biopsy procedure was explained to the patient. The risks, benef its, alternatives were discussed. An informed consent was then obtained. Timeout was performed. The patient was placed in supine positioning for imaging and for the procedure. The overlying skin w as prepped with betadine and sterilely draped in usual sterile fashion. Lidocaine 1% was used as ane sthetic into the skin and deeper breast tissue up to area of concern in the breast. A small skin elida k was made with surgical scalpel. Under ultrasound guidance, a 12-gauge vacuum assisted biopsy device was used to obtain 6 core samples . A biopsy clip was left in lesion. Coil clip was placed. There was some mild bleeding which was easily controlled with pressure. Less than 10 mL blood loss. G ood hemostasis was obtained with direct pressure. Discharge instructions were discussed with the pat ient. The patient will follow up with the referring physician for results. Postprocedure mammogram: The patient was transferred to mammography for physician ordered post proced ure mammogram for clip placement verification. The clip is in the expected region of the biopsy. The patient tolerated the procedure well without any immediate complication. The patient was dischar ge to home in stable condition. IMPRESSION: 1. Successful ultrasound guided biopsy right breast. Recommendations: 1. Recommendations are pending pathology results.
== END ==
LOC: RADUSWWP 06:59
PROVIDERS: ATTEND Surgery
DX: C50.911 Malignant neoplasm of unspecified site of right female breast (principal)
CPT/HCPCS: 88305; 88342; 88341; 77065; 19083; A4648; J2001

== ENCOUNTER 2021-07-29 06:19 | Day surgery (SDC) | payer MEDICAID ==
[2021-07-25 14:50] VITALS: BMI 30.1
[~2021-07-29 06:19] MED LIST: LIDOCAINE 1% (10MG/ML) FOR IV START INTRADERMA PRN; Pre Op ABX Message 1 EACH MISC MISCELLANE ONE
[2021-07-29] MEDS: LACTATED RINGERS 1,000 ML IV SCH ×2 (07:01→07:58)
[2021-07-29] MEDS ORDERED: ONDANSETRON 4 MG/2 ML VIAL ONE (07:05)
[2021-07-29] MEDS ORDERED: DEXAMETHASONE SOD PHOSPHATE 4 MG/ML 1 ML VIAL IVP ONE (07:10)
[2021-07-29] MEDS ORDERED: MIDAZOLAM 2 MG/2 ML VIAL IVP ONE (07:11)
[2021-07-29] MEDS ORDERED: LIDOCAINE 1% INJ 10MG/ML (20 ML MDV) ONE (07:54)
[2021-07-29] MEDS ORDERED: GLYCOPYRROLATE 0.2 MG/ML 2 ML VIAL ONE (07:54)
[2021-07-29] MEDS ORDERED: fentaNYL (PF) 50 MCG/ML 2 ML AMP ONE (07:54)
[2021-07-29] MEDS ORDERED: MIDAZOLAM 2 MG/2 ML VIAL ONE (07:54)
[2021-07-29] MEDS ORDERED: PROPOFOL 10 MG/ML 20 ML VIAL IV ONE (07:54)
[2021-07-29] MEDS ORDERED: ePHEDrine 50 MG/ML 1 ML AMP ONE (07:54)
[2021-07-29] MEDS ORDERED: SODIUM CHLORIDE 0.9% 100 ML with ceFAZolin 2,000 MG IV ONE ×2 (08:00)
--- NOTE | 2021-07-29 08:07 | P.GSHP ---
History of Present Illness H&P Date: 07/29/21 Chief Complaint: Right breast cancer 41-year-old female here today for Port-A-Cath placement. 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 Patient will start neoadjuvant therapy after she was seen by oncology last week. Past Medical History Past Medical History: Cancer, Mitral Valve Prolapse (MVP), Neurologic Disorder, Thyroid Disorder Additional Past Medical History / Comment(s): Multiple sclerosis-no current sx., Menstrual related migraine headaches. 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 She has no other history of STDs. Uterine fibroid measuring 1.4 cm(11/19/18). CRYPTOGENIC STROKE on MRI-no symptoms. Thyroid nodules, benign, new dx. triple neg breast cancer, hx. MVP-usually pre-medicates prior to procedures-sees Dr. Gamboa for History of Any Multi-Drug Resistant Organisms: None Reported Past Surgical History: Breast Surgery Additional Past Surgical History / Comment(s): Breast biopsies. Thyroid biopsy. lumbar puncture x2 Past Anesthesia/Blood Transfusion Reactions: No Reported Reaction Smoking Status: Never smoker - Past Family History Sister(s) Family Medical History: Cancer Additional Family Medical History / Comment(s): Brain cancer. Father Family Medical History: Diabetes Mellitus Additional Family Medical History / Comment(s): Paternal grandmother had a gynecologic cancer, either cervical cancer or ovarian cancer. Mother Family Medical History: Hyperlipidemia Medications and Allergies Home Medications Medication Instructions Recorded Confirmed Type Baclofen 10 mg PO HS 07/19/19 07/29/21 History Cholecalciferol (Vitamin D3) 2,000 unit PO DAILY 07/19/19 07/29/21 History [Vitamin D3] Ibuprofen 800 mg PO DAILY PRN 07/19/19 07/29/21 History Propranolol [Inderal] 20 mg PO BID 07/19/19 07/29/21 History Topiramate [Topamax] 50 mg PO HS 07/19/19 07/29/21 History Zquil 1 tab PO HS PRN 07/19/19 07/29/21 History Allergies Allergy/AdvReac Type Severity Reaction Status Date / Time No Known Allergies Allergy Verified 07/29/21 06:46 Surgical - Exam Vital Signs Temp Pulse Resp BP Pulse Ox 97.6 F 61 16 118/64 99 07/29/21 06:52 07/29/21 06:52 07/29/21 06:52 07/29/21 06:52 07/29/21 06:52 Physical exam: General: Well-developed, well-nourished HEENT: Normocephalic, sclerae nonicteric Abdomen: Nontender, nondistended Extremities: No edema Neuro: Alert and oriented Assessment and Plan (1) Breast cancer, right Narrative/Plan: Will proceed with Port-A-Cath placement at this time. Risks of bleeding, infection, DVT, pneumothorax, catheter malfunction, anesthesia related complications were discussed. The patient understands and wishes to proceed. Current Visit: Yes Status: Acute Code(s): C50.911 - MALIGNANT NEOPLASM OF UNSP SITE OF RIGHT FEMALE BREAST SNOMED Code(s): 401091728
[2021-07-29] MEDS ORDERED: LIDOCAINE 1% INJ 10MG/ML (20 ML MDV) SQ ONE ×2 (08:24)
[2021-07-29 09:12] VITALS: TEMP 97.1
[2021-07-29] MEDS ORDERED: NALOXONE 0.4 MG/ML 1 ML VIAL IV PRN (09:15)
[2021-07-29] MEDS ORDERED: HYDROcodone/APAP 5-325MG 1 EACH TAB PO PRN (09:15)
[2021-07-29 09:19] VITALS: RESP 16
--- NOTE | 2021-07-29 09:19 | P.OP ---
Date of Procedure: 07/29/21 Procedure(s) Performed: PREOPERATIVE DIAGNOSIS: Breast cancer POSTOPERATIVE DIAGNOSIS: Same PROCEDURE: Port-A-Cath placement with fluoroscopic and ultrasound guidance SURGEON: Eleni EBL: Minimal ANESTHESIA: Sedation COMPLICATIONS: None OPERATIVE PROCEDURE: Patient was brought and placed on the operative table in the supine position. The patient was sedated per anesthesia that time. The chest and neck were prepped and draped in usual sterile fashion. The ultrasound probe was used to identify the location of the right internal jugular vein. The skin was localized with lidocaine. The Seldinger needle was advanced into the IJ under ultrasound guidance. The wire was advanced through the needle under fluoroscopic guidance into the superior vena cava. A port pocket was created in the right infraclavicular location. The catheter was tunneled from the wire entrance site to the port pocket. The port was then connected to the catheter. The dilator introducer was threaded over the guidewire. The guidewire and dilator were then removed. The catheter was advanced through the introducer and introducer was then removed. The tip was seen to be in the right atrial junction via fluoroscopy. A picture of the radiograph showing the tip at the radial digital junction was taken. Port was flushed with both saline and a Hep- Lock solution. There was good flow both in and out of the port. The port was sutured in underlying tissues using 3-0 silk sutures. The subcutaneous tissues were reapproximated using 3-0 Vicryl sutures and the skin at both locations using 4-0 Monocryl sutures. Skin glue and sterile dressings then applied. DISPOSITION: Stable to recovery room
--- NOTE | 2021-07-29 09:36 | XR ---
EXAMINATION TYPE: XR chest 1V DATE OF EXAM: 07/29/2021 COMPARISON: 12/31/2016 HISTORY: Port-A-Cath insertion TECHNIQUE: Single frontal view of the chest is obtained. FINDINGS: Left-sided Mediport seen with the tip overlying the SVC. No sizable pneumothorax. Heart si ze normal. No overt failure or pleural effusion. Diffuse osteopenia. Atherosclerotic change aorta. IMPRESSION: 1. Mediport catheter seen with the tip overlying the SVC and no sizable pneumothorax
--- NOTE | 2021-07-29 09:37 | FL ---
EXAMINATION TYPE: FL guided central line placemt HISTORY: Fluoroscopy time Impression: 1. Fluoroscopy support provided to the referring physician. 25 seconds of fluoroscopy provided.
[2021-07-29 10:37] VITALS: BP 105/69; PULSE 53
== END 2021-07-29 10:52 | disposition home or self-care (01) ==
LOC: OR 06:19
PROVIDERS: ATTEND Surgery
DX: C50.912 Malignant neoplasm of unspecified site of left female breast (principal); G35 Multiple sclerosis; I34.1 Nonrheumatic mitral (valve) prolapse; Z17.1 Estrogen receptor negative status [ER-]; Z83.3 Family history of diabetes mellitus; Z83.49 Family history of other endocrine, nutritional and metabolic diseases; Z86.73 Personal history of transient ischemic attack (TIA), and cerebral infarction without residual deficits; Z45.2 Encounter for adjustment and management of vascular access device
CPT/HCPCS: 36561; 36590; 81025; 77001; 71045; C1788; J2250; J1100; J2405; J0690; J2001; J3010; J1642; J2704

== ENCOUNTER → 2021-07-31 | Outpatient (CLI) | payer MEDICAID ==
--- NOTE | 2021-08-01 12:01 | USB ---
Reason for exam: clinical finding. History: Patient has history of breast cancer at age 41. Family history of breast cancer. Malignant US biopsy breast VAD RT of the right breast, July 10, 2021. Benign US RT VAD breast biopsy of the right breast, August 29, 2013. Benign US LT VAD breast biopsy of the left breast, August 29, 2013. Benign excisional biopsy of the right breast, July 25, 1998. Took hormonal contraceptives for 15 years beginning at age 16. Indicated problem(s): lump or thickening in the right breast. Physical Findings: Nurse did not find any significant physical abnormalities on exam. US Breast RT Prior study comparison: July 22, 2021, breast MRI, performed at [facility]. Right complete breast ultrasound includes all four quadrants, the retroareolar region and axilla. Finding demonstrates a 0.7 x 0.4 x 0.7cm hypoechoic lesion at 12 o'clock, a 0.9 x 0.5 x 0.8cm hypoechoic lesion at 12 o'clock, a 0.6 x 0.4 x 0.5cm hypoechoic lesion at 4 o'clock, one of these is likely the 7mm MRI correlate, biopsy both prior to definitive surgery and a 0.6 x 0.6 x 0.8cm irregular, hypoechoic lesion at 11 o'clock, biopsy proven cancer. These results were verbally communicated with the patient and result sheet given to the patient on 07/31/21. ASSESSMENT: Suspicious, BI-RAD 4 RECOMMENDATION: Ultrasound core biopsy of the right breast. (12 o'clock x 2) Called office with mammographic findings and has scheduled an appointment for the patient for 08/21/21 at 4:[address] Knowles. Biopsy scheduled for 08/14/21 at 1:00. PRELIMINARY REPORT CALLED AND FAXED TO DR. KNOWLES ON 08/01/21.
== END | disposition home or self-care (01) ==
LOC: RADUSWWP 14:17
PROVIDERS: ATTEND Surgery
DX: C50.419 Malignant neoplasm of upper-outer quadrant of unspecified female breast (principal)

== ENCOUNTER → 2021-08-02 | Day surgery (SDC) | payer MEDICAID ==
[2021-08-02 09:57] VITALS: BP 122/64; PULSE 59; RESP 16; TEMP 98.1
--- NOTE | 2021-08-02 15:32 | USB ---
EXAMINATION TYPE: US biopsy breast VAD RT DATE OF EXAM: 08/02/2021 CLINICAL HISTORY: R92.8 abnormal mammogram. TECHNIQUE: Ultrasound guided vaccuum assisted core biopsy of right breast, 2 locations. COMPARISON: Ultrasound 07/31/2021 FINDINGS: The ultrasound guided core biopsy procedure was explained to the patient. The risks, benefits, alternatives were discussed. An informed consent was then obtained. Timeout was performed. The patient was placed in supine positioning for imaging and for the procedure. The overlying skin was prepped with betadine and sterilely draped in usual sterile fashion. Lidocaine 1% was used as anesthetic into the skin and deeper breast tissue up to area of concern in the breast. A small skin mario was made with surgical scalpel. Under ultrasound guidance, a 12-gauge vacuum assisted biopsy device was used to obtain 5 core samples. A biopsy clip was left in lesion. Ribbon clip was placed. This biopsy site at the 12:00 position was labeled A superior. Under ultrasound guidance through the same incision site with a separate set up, a 12-gauge vacuum assisted biopsy device was used to obtain 7 core samples. A biopsy clip was left in lesion. Wing clip was placed. This biopsy site at this 12:00 position was labeled B retroareolar. Small hematoma was identified at this second biopsy site. This was discussed with the patient and instructions in case the recurrence were provided. Good hemostasis was obtained with direct pressure. Discharge instructions were discussed with the patient. The patient will follow up with the referring physician for results. Postprocedure mammogram: The patient was transferred to mammography for physician ordered post procedure mammogram for clip placement verification. The clips are in the expected region of the biopsy. The patient tolerated the procedure well. The patient was discharged to home in stable condition. IMPRESSION: 1. Successful ultrasound guided biopsy right breast, 2 locations. Recommendations: 1. Recommendations are pending pathology results. Pathology Results: Benign A. RIGHT BREAST, SITE A 12:00 SUPERIOR, ULTRASOUND GUIDED CORE BIOPSY: Fibroadenoma/fibroadenomatoid hyperplasia in a background of fibrocystic changes with prominent stromal fibrosis. B. RIGHT BREAST, SITE B 12:00 RETROAREOLAR, ULTRASOUND GUIDED CORE BIOPSY: Fibrocystic changes including cysts and fibrosis. Recommendation Surgical consult of the right breast. Newly diagnosed known cancer right breast. [facility]
== END ==
LOC: RADUSWWP 09:11
PROVIDERS: ATTEND Surgery
DX: R92.8 Other abnormal and inconclusive findings on diagnostic imaging of breast (principal)
CPT/HCPCS: 77065; 19083; 19084; A4648; J2001

== ENCOUNTER → 2021-08-09 | Outpatient (CLI) | payer MEDICAID ==
--- NOTE | 2021-08-10 02:29 | MR ---
EXAMINATION TYPE: MR brain wo/w con DATE OF EXAM: 08/09/2021 COMPARISON: 10/01/2020 HISTORY: MS follow up, Breast cancer Sept. 2020 CONTRAST: Standard multiplanar, multisequence MRI departmental protocol images were obtained without contrast a nd with 9 mL intravenous Gadavist gadolinium contrast. Ventricles have fairly normal size. There is no mass effect nor midline shift. There is no sign of in tracranial hemorrhage. There is some gyriform increased signal in the left occipital lobe cortex. Thi s is seen in the T2 and FLAIR images. There is no pathologic enhancement. This area has decreased sig nal on the contrast images. Corpus callosum is intact. The brainstem is intact. There is no evidence of a posterior fossa mass. S adrian turcica appears normal. There is no evidence of orbital mass. There is normal enhancement of the venous sinuses. IMPRESSION: There is 3 x 2 cm area of gyriform increased signal on the T2 and FLAIR images without enhancement an d stable compared to old exam. 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 No evidence of an acute infarct. No evidence of metastatic disease. No evidence of demyelinating disease.
== END | disposition home or self-care (01) ==
LOC: RADMRIMAIN 16:55
PROVIDERS: ATTEND Psychiatry & Neurology Neurology
DX: G35 Multiple sclerosis (principal)
CPT/HCPCS: 70553; A9585

== ENCOUNTER → 2022-03-06 | Outpatient (CLI) | payer MEDICAID ==
[2022-03-06 19:20] LABS: Hepatitis B Surface Antigen Nonreactive (Nonreactive); Hepatitis C IgG Antibody Nonreactive (Nonreactive)
[2022-03-06 19:21] LABS: Hepatitis B Surface Antibody Reactive (Nonreactive)
[2022-03-06 19:35] LABS: Basophils # (A) 0.04 X 10*3/uL (0.00-0.10); Basophils % (A) 0.7 %; Eosinophils # (A) 0.04 X 10*3/uL (0.04-0.35); Eosinophils % (A) 0.7 %; HCT 36.8 % (37.2-46.3); HGB 11.9 g/dL (12.0-15.0); Immature Grans, Automated 0.4 %; Lymphocytes % (A) 21.3 %; MCH 31.1 pg (27.0-32.0); MCHC 32.3 g/dL (32.0-37.0); MCV 96.1 fL (80.0-97.0); Mean Platelet Volume 9.2 fL (9.5-12.2); Monocytes # (A) 0.68 X 10*3/uL (0.20-1.00); Monocytes % (A) 12.1 %; NRBC Per 100 WBC 0 /100 WBCS (0.0-0.0); Neutrophils # (A) 3.66 X 10*3/uL (1.80-7.70); Neutrophils % (A) 64.8 %; Platelet Count 275 X 10*3/uL (140-440); RBC 3.83 X 10*6/uL (4.10-5.20); RDW 13.8 % (11.5-14.5); WBC 5.64 X 10*3/uL (4.50-10.00)
[2022-03-06 20:35] LABS: HIV 2 AB Non-Reactive (Non-Reactive); HIV AB P24 Non-Reactive (Non-Reactive); HIV P24 AG Non-Reactive (Non-Reactive)
[2022-03-06 22:25] LABS: % Iron Saturation 17.13 (12.00-45.00); ALT 27 U/L (8-44); AST 24 U/L (13-35); African American GFR (CKD) 95.8 (60.0-200.0); Albumin 4.6 g/dL (3.8-4.9); Albumin/Globulin Ratio 1.89 (1.60-3.17); Alkaline Phosphatase 107 U/L (41-126); BUN/Creat Ratio 10.61 Ratio (12.00-20.00); Blood Urea Nitrogen 9.2 mg/dL (9.0-27.0); Calcium 9.5 mg/dL (8.7-10.3); Carbon Dioxide 24.3 mmol/L (20.0-27.5); Chloride 104 mmol/L (96-109); Ferritin 93.3 ng/mL (10.0-291.0); Globulin 2.5 g/dL (1.6-3.3); Glucose 91 mg/dL (70-110); Iron 66 ug/dL (50-170); Magnesium 2.2 mg/dL (1.5-2.4); Non-African American GFR(CKD) 82.6 (60.0-200.0); Potassium 4.3 mmol/L (3.5-5.5); Sodium 139 mmol/L (135-145); Total Bilirubin <0.15 mg/dL (0.30-1.20); Total Iron Binding Capacity 386 ug/dL (228-460); Total Protein 7.1 g/dL (6.2-8.2); Uric Acid 4.6 mg/dL (2.9-7.7)
[2022-03-06 23:13] LABS: Chol/HDL Ratio 4.22 Ratio; LDL Cholesterol,Calculated 150.4 mg/dL (0.0-131.0); VLDL Calculation 19.74 mg/dL (5.00-40.00)
== END | disposition home or self-care (01) ==
LOC: LABWHC1 11:04
PROVIDERS: ATTEND Family Medicine
DX: Z13.220 Encounter for screening for lipoid disorders (principal); Z11.4 Encounter for screening for human immunodeficiency virus [HIV]; Z11.59 Encounter for screening for other viral diseases; M25.561 Pain in right knee; R63.5 Abnormal weight gain; M25.562 Pain in left knee; G89.29 Other chronic pain; C50.911 Malignant neoplasm of unspecified site of right female breast; Z17.1 Estrogen receptor negative status [ER-]
CPT/HCPCS: 36415; 80053; 80061; 82306; 82607; 82728; 82746; 83036; 83540; 83550; 83735; 84443; 84550; 85025; 86706; 86780; 86803; 87340; 87390; 87522

== ENCOUNTER → 2022-05-03 | Outpatient (CLI) | payer MEDICAID ==
[2022-05-03 16:56] LABS: Basophils # (A) 0.03 X 10*3/uL (0.00-0.10); Basophils % (A) 0.7 %; Eosinophils # (A) 0.11 X 10*3/uL (0.04-0.35); Eosinophils % (A) 2.5 %; HGB 12.1 g/dL (12.0-15.0); Immature Grans, Automated 0.2 %; Lymphocytes # (A) 0.93 X 10*3/uL (0.90-5.00); MCH 29.7 pg (27.0-32.0); MCHC 31.8 g/dL (32.0-37.0); MCV 93.4 fL (80.0-97.0); Mean Platelet Volume 8.6 fL (9.5-12.2); Monocytes % (A) 11.3 %; NRBC Per 100 WBC 0 /100 WBCS (0.0-0.0); Neutrophils # (A) 2.84 X 10*3/uL (1.80-7.70); Neutrophils % (A) 64.3 %; Platelet Count 286 X 10*3/uL (140-440); RBC 4.07 X 10*6/uL (4.10-5.20); WBC 4.42 X 10*3/uL (4.50-10.00)
[2022-05-03 17:30] LABS: ALT 24 U/L (8-44); AST 24 U/L (13-35); African American GFR (CKD) 105.4 (60.0-200.0); Albumin 4.5 g/dL (3.8-4.9); Albumin/Globulin Ratio 1.55 (1.60-3.17); Alkaline Phosphatase 106 U/L (41-126); Blood Urea Nitrogen 13.6 mg/dL (9.0-27.0); Calcium 9.6 mg/dL (8.7-10.3); Carbon Dioxide 24.2 mmol/L (20.0-27.5); Chloride 105 mmol/L (96-109); Globulin 2.9 g/dL (1.6-3.3); Glucose 91 mg/dL (70-110); Magnesium 2.1 mg/dL (1.5-2.4); Non-African American GFR(CKD) 90.9 (60.0-200.0); Sodium 142 mmol/L (135-145); Total Bilirubin <0.15 mg/dL (0.30-1.20); Total Protein 7.4 g/dL (6.2-8.2)
== END | disposition home or self-care (01) ==
LOC: LABWHC1 09:30
PROVIDERS: ATTEND Internal Medicine Hematology & Oncology
DX: C50.411 Malignant neoplasm of upper-outer quadrant of right female breast (principal); D64.81 Anemia due to antineoplastic chemotherapy; I47.1 Supraventricular tachycardia; I34.0 Nonrheumatic mitral (valve) insufficiency; Z71.3 Dietary counseling and surveillance; G35 Multiple sclerosis
CPT/HCPCS: 36415; 80053; 83735; 84439; 84443; 84481; 85025

== ENCOUNTER → 2022-05-12 | Outpatient (CLI) | payer MEDICAID ==
--- NOTE | 2022-05-12 08:05 | US ---
EXAMINATION TYPE: US thyroid st tissue head/neck DATE OF EXAM: 05/12/2022 COMPARISON: 03/26/2021 CLINICAL HISTORY: 41-year-old female E04.2 NONTOXIC MULTINODULAR GOITER. Goiter. Hx FNA. TECHNIQUE: Multiple sonographic images of the thyroid gland are obtained. FINDINGS: GLAND SIZE: Right Lobe: 5.3 x 1.9 x 1.7 cm Overall Parenchyma: homogenous Left Lobe: 5.7 x 1.9 x 1.3 cm Overall Parenchyma: homogeneous Isthmus Thickness: 0.26 cm NODULES RIGHT: # of nodules measured on right: 2 1. 1.9 X 0.8 x 0.8 cm, mid lateral, solid or almost completely solid, hypoechoic TR 4 nodule, which is as wide as it is tall, with ill-defined margins, without echogenic foci. Prior size: 2.0 x 0.6 x 0.7 cm 2. 1.6 X 1.4 x 0.8 cm, mid medial, solid or almost completely solid, hypoechoic TR 4 nodule, which is wider than tall, with smooth margins, without echogenic foci. Prior size: 1.3 x 0.8 x 1.2 cm LEFT: # of nodules measured on left: 2 1. 0.7 X 0.6 x 0.4 cm, upper lateral, solid or almost completely solid, hypoechoic TR 4 nodule, whi ch is wider than tall, with smooth margins, without echogenic foci. Prior size: 0.7 x 0.5 x 0.6 cm 2. 1.5 X 1.1 x 0.6 cm, mid medial, solid or almost completely solid, hypoechoic TR 4 nodule, which is wider than tall, with smooth margins, without echogenic foci. Prior size: 1.3 x 0.5 x 0.7 cm ISTHMUS: # of nodules measured in the isthmus: 0 Bilateral neck scanned, no evidence of lymphadenopathy. IMPRESSION: 1. A solid TR4 nodule on either side shows slight enlargement, now meeting criteria for FNA. The nodu le on the right measures 1.6 cm versus 1.3 cm, previously. The nodule on the left measures 1.5 cm apolonia gabino 1.3 cm, previously. 2. The dominant 1.9 x 0.8 cm elongated nodule on the right is unchanged.
== END | disposition home or self-care (01) ==
LOC: RADUSWWP 06:47
PROVIDERS: ATTEND Internal Medicine
DX: E04.2 Nontoxic multinodular goiter (principal)
CPT/HCPCS: 76536

== ENCOUNTER 2022-08-25 07:17 | Day surgery (SDC) | payer MEDICAID ==
[~2022-08-25 07:17] MED LIST changes: +ACETAMINOPHEN TAB 500 MG TAB PO PRN; +HEPARIN SODIUM,PORCINE/PF 5,000 UNIT/0.5 ML SYRINGE SQ PRN; -LIDOCAINE 1% (10MG/ML) FOR IV START INTRADERMA PRN; -Pre Op ABX Message 1 EACH MISC MISCELLANE ONE
--- NOTE | 2022-08-25 07:35 | P.GSHP ---
History of Present Illness H&P Date: 08/25/22 Chief Complaint: Left breast cancer 42-year-old female here today for Port-A-Cath removal. Patient underwent chemotherapy along with her left breast cancer treatment. She has not used the port for some time. Here today for Port-A-Cath removal. Past Medical History Past Medical History: Cancer, Mitral Valve Prolapse (MVP), Neurologic Disorder, Thyroid Disorder Additional Past Medical History / Comment(s): Multiple sclerosis-no current sx., Menstrual related migraine headaches. 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 She has no other history of STDs. Uterine fibroid measuring 1.4 cm(11/19/18). CRYPTOGENIC STROKE on MRI-no symptoms. Thyroid nodules, benign, new dx. triple neg breast cancer, hx. MVP-usually pre-medicates prior to procedures-sees Dr. Gamboa for History of Any Multi-Drug Resistant Organisms: None Reported Past Surgical History: Breast Surgery Additional Past Surgical History / Comment(s): Breast biopsies. Thyroid biopsy. lumbar puncture x2,sherice, port placement, Past Anesthesia/Blood Transfusion Reactions: No Reported Reaction Smoking Status: Never smoker - Past Family History Sister(s) Family Medical History: Cancer Additional Family Medical History / Comment(s): Brain cancer. Father Family Medical History: Diabetes Mellitus Additional Family Medical History / Comment(s): Paternal grandmother had a gynecologic cancer, either cervical cancer or ovarian cancer. Mother Family Medical History: Hyperlipidemia Medications and Allergies Home Medications Medication Instructions Recorded Confirmed Type Baclofen 10 mg PO HS 07/19/19 08/18/22 History Cholecalciferol (Vitamin D3) 1,000 unit PO DAILY 07/19/19 08/18/22 History [Vitamin D3] Ibuprofen 800 mg PO DAILY PRN 07/19/19 08/18/22 History Propranolol [Inderal] 20 mg PO BID 07/19/19 08/18/22 History Topiramate [Topamax] 50 mg PO HS 07/19/19 08/18/22 History Triamterene/Hydrochlorothiazid 1 tab PO DAILY 08/18/22 08/18/22 History [Triamterene-Hctz 37.5-25 mg Cp] Allergies Allergy/AdvReac Type Severity Reaction Status Date / Time No Known Allergies Allergy Verified 08/18/22 15:38 Surgical - Exam Physical exam: General: Well-developed, well-nourished HEENT: Normocephalic, sclerae nonicteric Abdomen: Nontender, nondistended Extremities: No edema Neuro: Alert and oriented Assessment and Plan (1) Breast cancer Narrative/Plan: 42-year-old female with history of breast cancer. We'll proceed with Port-A-Cath removal at this time. Current Visit: Yes Status: Acute Code(s): C50.919 - MALIGNANT NEOPLASM OF UNSP SITE OF UNSPECIFIED FEMALE BREAST SNOMED Code(s): 541970008
[2022-08-25] MEDS ORDERED: LIDOCAINE 1% (10MG/ML) FOR IV START INTRADERMA PRN (07:44)
[2022-08-25] MEDS ORDERED: LACTATED RINGERS 1,000 ML IV SCH (07:44)
[2022-08-25] MEDS ORDERED: ONDANSETRON 4 MG/2 ML VIAL IVP ONE (07:44)
[2022-08-25] MEDS ORDERED: DEXAMETHASONE SOD PHOSPHATE 4 MG/ML 1 ML VIAL IV ONE (07:44)
[2022-08-25] MEDS ORDERED: HYDROmorphone 0.5 MG/0.5 ML SYRINGE IVP PRN (07:44)
[2022-08-25 07:53] VITALS: TEMP 97
[2022-08-25] MEDS ORDERED: fentaNYL (PF) 50 MCG/ML 2 ML AMP ONE (08:39)
[2022-08-25] MEDS ORDERED: PROPOFOL 10 MG/ML 20 ML VIAL IV ONE (08:39)
[2022-08-25] MEDS ORDERED: MIDAZOLAM 2 MG/2 ML VIAL ONE (08:39)
[2022-08-25] MEDS ORDERED: KETOROLAC 15 MG/ML 1 ML VIAL ONE (08:39)
[2022-08-25] MEDS ORDERED: LIDOCAINE 2% (PF) 20 MG/ML 5 ML VIAL SQ ONE ×2 (08:58)
[2022-08-25] MEDS ORDERED: NALOXONE 0.4 MG/ML 1 ML VIAL IV PRN (09:22)
--- NOTE | 2022-08-25 09:23 | P.OP ---
Date of Procedure: 08/25/22 Procedure(s) Performed: PREOPERATIVE DIAGNOSIS: Right breast cancer POSTOPERATIVE DIAGNOSIS: Same PROCEDURE: Port-A-Cath removal SURGEON: Eleni EBL: Minimal ANESTHESIA: Sedation COMPLICATIONS: None OPERATIVE PROCEDURE: Patient was placed in the supine position. The patient was sedated per anesthesia that time. The left chest was prepped and draped in the usual sterile fashion. The skin was localized with Marcaine solution. The previous incision was excised using a scalpel. The port was easily excised using accommodation of blunt dissection sharp dissection and electrocautery. The subcutaneous tissues were reapproximated using 3-0 Vicryl sutures. The skin was reapproximated using 4-0 Monocryl sutures. Skin glue was then applied. DISPOSITION: Stable to recovery room
[2022-08-25 09:46] VITALS: BP 114/79; PULSE 54; RESP 18
== END 2022-08-25 10:03 | disposition home or self-care (01) ==
LOC: OR 07:17
PROVIDERS: ATTEND Surgery
DX: Z45.2 Encounter for adjustment and management of vascular access device (principal); C50.911 Malignant neoplasm of unspecified site of right female breast; E07.9 Disorder of thyroid, unspecified; I34.1 Nonrheumatic mitral (valve) prolapse; G35 Multiple sclerosis; Z83.3 Family history of diabetes mellitus; Z83.49 Family history of other endocrine, nutritional and metabolic diseases; Z85.3 Personal history of malignant neoplasm of breast; Z86.73 Personal history of transient ischemic attack (TIA), and cerebral infarction without residual deficits
CPT/HCPCS: 81025; 36590; J2250; J1100; J0690; J2405; J3010; J1885; J2704; J2001; J1644

== ENCOUNTER → 2023-03-02 | Outpatient (CLI) | payer MEDICAID ==
[2023-03-02 11:15] LABS: Basophils # (A) 0.04 X 10*3/uL; Basophils % (A) 0.6 %; Eosinophils # (A) 0.14 X 10*3/uL; Eosinophils % (A) 2.2 %; HCT 41.3 %; HGB 13.2 d/dL; Lymphocytes # (A) 1.89 X 10*3/uL; Lymphocytes % (A) 29.7 %; MCH 30.5 pg; MCV 95.4 FL; Mean Platelet Volume 9.4 FL; Monocytes # (A) 0.47 X 10*3/uL; Monocytes % (A) 7.4 %; NRBC Per 100 WBC 0 X 10*3/uL; Neutrophils # (A) 3.81 X 10*3/uL; Neutrophils % (A) 59.8 %; Platelet Count 287 X 10*3/uL; RBC 4.33 X 10*6/uL; RDW 13.8 %; WBC 6.37 X 10*3/uL
[2023-03-02 11:35] LABS: % Iron Saturation 23.55; Iron 85 UG/DL; LDL Cholesterol,Calculated 115.3 mg/dL; Total Iron Binding Capacity 361 UG/DL; VLDL Calculation 19.72 mg/dL
[2023-03-02 12:47] LABS: ALT 16 U/L; AST 16 U/L; Albumin 4.4 d/dL; Albumin/Globulin Ratio 1.91 Ratio; Alkaline Phosphatase 87 U/L; BUN/Creat Ratio 15.44 Ratio; Blood Urea Nitrogen 13.9 mg/dL; Calcium 9.5 mg/dL; Carbon Dioxide 23.9 mmol/L; Chloride 107 mmol/L; Globulin 2.3 d/dL; Glucose 90 mg/dL; Potassium 3.8 mmol/L; Sodium 141 mmol/L; Total Bilirubin 0.3 mg/dL; Total Protein 6.7 d/dL; Vitamin B12 >1800.0 pg/mL
[2023-03-02 15:42] LABS: Ferritin 50 ng/mL
== END ==
LOC: LABWHC1 07:05
PROVIDERS: ATTEND Family Medicine
DX: C50.911 Malignant neoplasm of unspecified site of right female breast (principal); E04.2 Nontoxic multinodular goiter; D64.9 Anemia, unspecified; E78.5 Hyperlipidemia, unspecified
CPT/HCPCS: 36415; 80053; 80061; 82306; 82607; 82728; 82746; 83036; 83540; 83550; 84443; 85025

== ENCOUNTER → 2023-07-08 | Outpatient (CLI) | payer MEDICAID ==
--- NOTE | 2023-07-09 09:07 | US ---
EXAMINATION TYPE: US thyroid st tissue head/neck DATE OF EXAM: 07/08/2023 COMPARISON: 05/12/22 CLINICAL INDICATION: Female, 43 years old with history of E04.2 NONTOXIC MULTINODULAR GOITER; Follow up on nodules. Hx of FNA. Not on thyroid medication GLAND SIZE: Right Lobe: 5.1 x 1.8 x 1.6 cm Overall Parenchyma: homogenous Left Lobe: 5.0 x 1.5 x 1.2 cm Overall Parenchyma: homogeneous Isthmus Thickness: 0.3 cm NODULES RIGHT: # of nodules measured on right: 2 1. 1.8 X 1.5 x 1.3 cm, lower lateral, solid or almost completely solid, hypoechoic nodule, which is wider than tall, with lobulated or irregular margins, without echogenic foci. TR 4. Prior size: 1.9 x 0.8 x 0.8 cm 2. 1.8 X 1.5 x 1.0 cm, upper medial, solid or almost completely solid, hypoechoic nodule, which is wider than tall, with smooth margins, without echogenic foci. TR 4. Prior size: 1.6 x 1.4 x 0.8 cm LEFT: # of nodules measured on left: 3 1. 0.6 X 0.6 x 0.4 cm, lower mid, solid or almost completely solid, hypoechoic nodule, which is wid er than tall, with smooth margins, without echogenic foci. TR 3. Prior size: 0.7 x 0.6 x 0.4 cm 2. 2.0 X 1.0 x 0.9 cm, upper mid, solid or almost completely solid, hypoechoic nodule, which is wi juan pablo than tall, with ill-defined margins, without echogenic foci. TR 4. Prior size: 1.5 x 1.1 x 0.6 cm 3. 1.0 X 0.8 x 0.5 cm, lower mid, mixed cystic and solid, hypoechoic nodule, which is wider than ta ll, with lobulated or irregular margins, without echogenic foci. TR 4. ISTHMUS: # of nodules measured in the isthmus: 0 Bilateral neck scanned, no evidence of lymphadenopathy. IMPRESSION: 1. Multinodular thyroid gland redemonstrated. 2. Marginal increase in size of right upper medial 1.8 cm TR 4 nodule, previously 1.6 cm. Consider f ine-needle aspiration. 3. Marginal increase in size of left mid thyroid 2.0 cm TR 4 nodule, previously 1.5 cm. Consider fin e-needle aspiration. 4. New 1.0 cm lower mid left 1.0 cm TR 4 nodule. Follow-up ultrasound in one year is recommended. 5. Remaining nodules are stable from prior exam.
== END | disposition home or self-care (01) ==
LOC: RADUSWWP 16:07
PROVIDERS: ATTEND Internal Medicine
DX: E04.2 Nontoxic multinodular goiter (principal)
CPT/HCPCS: 76536

== ENCOUNTER → 2024-03-26 | Outpatient (CLI) | payer OTHER ==
[2024-03-26 12:40] LABS: Basophils # (A) 0.04 X 10*3/uL (0.00-0.10); Basophils % (A) 0.7 %; Eosinophils # (A) 0.13 X 10*3/uL (0.04-0.35); Eosinophils % (A) 2.2 %; HCT 41.9 % (37.2-46.3); HGB 13.6 g/dL (12.0-15.0); Lymphocytes # (A) 1.68 X 10*3/uL (0.90-5.00); Lymphocytes % (A) 27.9 %; MCH 30.5 pg (27.0-32.0); MCHC 32.5 g/dL (32.0-37.0); MCV 93.9 FL (80.0-97.0); Mean Platelet Volume 8.8 FL (9.5-12.2); Monocytes # (A) 0.46 X 10*3/uL (0.20-1.00); Monocytes % (A) 7.6 %; NRBC Per 100 WBC 0 X 10*3/uL (0.00-0.01); Neutrophils # (A) 3.68 X 10*3/uL (1.80-7.70); Neutrophils % (A) 61.1 %; Platelet Count 281 X 10*3/uL (140-440); RBC 4.46 X 10*6/uL (4.10-5.20); RDW 12.9 % (11.5-14.5); WBC 6.02 X 10*3/uL (4.50-10.00)
[2024-03-26 15:51] LABS: VLDL Calculation 15.76 mg/dL (5.00-40.00)
[2024-03-26 15:57] LABS: ALT 21 U/L (8-44); AST 24 U/L (13-35); Albumin 4.8 g/dL (3.8-4.9); Albumin/Globulin Ratio 1.85 Ratio (1.60-3.17); Alkaline Phosphatase 107 U/L (41-126); BUN/Creat Ratio 14.78 Ratio (12.00-20.00); Blood Urea Nitrogen 13.3 mg/dL (9.0-27.0); Chloride 102 mmol/L (96-109); Chol/HDL Ratio 3.39 Ratio; Globulin 2.6 g/dL (1.6-3.3); Glucose 99 mg/dL (70-110); LDL Cholesterol,Calculated 150.5 mg/dL (0.0-131.0); Potassium 4.5 mmol/L (3.5-5.5); Sodium 140 mmol/L (135-145); Total Bilirubin 0.3 mg/dL (0.3-1.2); Total Protein 7.4 g/dL (6.2-8.2)
== END | disposition home or self-care (01) ==
LOC: LABWHC1 08:43
PROVIDERS: ATTEND Family Medicine
DX: C50.911 Malignant neoplasm of unspecified site of right female breast (principal); E04.2 Nontoxic multinodular goiter; E78.5 Hyperlipidemia, unspecified
CPT/HCPCS: 36415; 80053; 80061; 82306; 83036; 84443; 85025

== ENCOUNTER → 2024-04-04 | Outpatient (CLI) | payer OTHER ==
--- NOTE | 2024-04-04 10:16 | XR ---
EXAMINATION TYPE: XR femur LT DATE OF EXAM: 04/04/2024 7:46 AM CLINICAL INDICATION:Female, 43 years old with history of C50.411 breast ca; [facility] COMPARISON: None TECHNIQUE: XR femur LT examined in Frontal and lateral projections. FINDINGS: No evidence of acute osseous pathology, joint dislocation, or soft tissue swelling. Mild o steophyte formations of the superior acetabulum. Mild joint space narrowing. No suspicious lesions id entified. IMPRESSION: 1. No acute osseous pathology. 2. Mild degeneration changes of the hip.
--- NOTE | 2024-04-04 15:25 | NM ---
EXAMINATION TYPE: NM bone scan whole body DATE OF EXAM: 04/04/2024 1:57 PM CLINICAL INDICATION:Female, 43 years old with history of C50.411 breast ca; COMPARISON: MRI 07/22/2021. TECHNIQUE: Intravenous administration 21.0 mCi Tc 99m MDP followed by multiple scintigraphic images o f the appendicular and axial skeleton. Additionally, small field of view planar anterior and posterio r images of the lumbosacral spine and pelvis. Lastly, coronal, transverse, and sagittal SPECT images of the lumbosacral spine and pelvis were generated for review.Lastly, small [id number] anterior, p osterior and lateral views of the chest were submitted for review. Images acquired 5.5 hours post injection. FINDINGS: No abnormal uptake is identified within the appendicular or axial skeleton to suggest metastatic dise ase. There is increased uptake within the bilateral shoulder, sternoclavicular, and sacroiliac joints con sistent with degenerative changes. No other photopenic areas or areas of increased activity are ident ified. Physiologic radiotracer activity is demonstrated in the kidneys and bladder. IMPRESSION: 1. Nothing to suggest metastatic disease. 2. Uptake in the right knee in the patella correlate for osteoarthrosis.
== END | disposition home or self-care (01) ==
LOC: RADNMMAIN 07:11
PROVIDERS: ATTEND Internal Medicine Hematology & Oncology
DX: C50.411 Malignant neoplasm of upper-outer quadrant of right female breast (principal); M17.11 Unilateral primary osteoarthritis, right knee; G35 Multiple sclerosis; Z71.3 Dietary counseling and surveillance
CPT/HCPCS: 73552; 78306; A9503

== ENCOUNTER → 2024-09-22 | Outpatient (CLI) | payer OTHER ==
--- NOTE | 2024-09-23 18:40 | US ---
EXAMINATION TYPE: US thyroid st tissue head/neck DATE OF EXAM: 09/22/2024 COMPARISON: NONE CLINICAL INDICATION: Female, 44 years old with history of E04.2 Nontoxic multinodular goiter; Thyroid nodules TECHNIQUE: Grayscale and color Doppler imaging of the thyroid gland. FINDINGS: GLAND SIZE: Right Lobe: 5.3 x 1.6 x 1.7 cm Overall Parenchyma: heterogeneous Left Lobe: 5.1 x 1.2 x 1.6 cm Overall Parenchyma: heterogeneous Isthmus Thickness: .17 cm NODULES RIGHT: # of nodules measured on right: 2 1. 1.7x1.2x 1.3cm lower mid Prior size: 1.8 1.5x 1.3cm TIRADS Score: 4 TIRADS Category 4: Composition: Solid or almost completely solid (2 points). Echogenicity: Hypoechoic (2 points). Shape: Wider than tall (0 points). Margin: Smooth (0 points). Echogenic foci: None or large comet-tail artifacts (0 points) Recommendation: If >1.5cm: FNA; If >1cm: Follow up at 1,2, 3,5 years 2. 1.7x 0.9 x 1.6 cm, lower medial, Prior size: 1.8 x 1.5 x 1.0 cm TIRADS Score: 4 TIRADS Category 4: Composition: Solid or almost completely solid (2 points). Echogenicity: Hypoechoic (2 points). Shape: Wider than tall (0 points). Margin: Smooth (0 points). Echogenic foci: None or large comet-tail artifacts (0 points) Recommendation: If >1.5cm: FNA; If >1cm: Follow up at 1,2, 3,5 years LEFT: # of nodules measured on left: 3 1. 0.6 X 0.4 x 0.5 cm, upper Prior size: 0.6 x 0.6 x 0.3 cm TIRADS Score: 4 TIRADS Category 4: Composition: Solid or almost completely solid (2 points). Echogenicity: Hypoechoic (2 points). Shape: Wider than tall (0 points). Margin: Smooth (0 points). Echogenic foci: None or large comet-tail artifacts (0 points) Recommendation: If >1.5cm: FNA; If >1cm: Follow up at 1,2, 3,5 years 2. 1.3 X 0.6 x 1.0 cm, mid Prior size: 2.0 x 1.0 x 1.0 cm TIRADS Score: 4 TIRADS Category 4: Composition: Solid or almost completely solid (2 points). Echogenicity: Hypoechoic (2 points). Shape: Wider than tall (0 points). Margin: Smooth (0 points). Echogenic foci: None or large comet-tail artifacts (0 points) Recommendation: If >1.5cm: FNA; If >1cm: Follow up at 1,2, 3,5 years 3. 0.7 X 0.4 x 0.5 cm, lower Prior size: 1.0 x 0.8 x 0.5 cm TIRADS Score: 4 TIRADS Category 4: Composition: Solid or almost completely solid (2 points). Echogenicity: Hypoechoic (2 points). Shape: Wider than tall (0 points). Margin: Smooth (0 points). Echogenic foci: None or large comet-tail artifacts (0 points) Recommendation: If >1.5cm: FNA; If >1cm: Follow up at 1,2, 3,5 years ISTHMUS: # of nodules measured in the isthmus: 0 Bilateral neck scanned, no evidence of lymphadenopathy. IMPRESSION: Bilateral thyroid nodules that meet criteria for biopsy on the right. [facility], , 09/23/2024 6:38 PM
== END | disposition home or self-care (01) ==
LOC: RADUSWWP 13:40
PROVIDERS: ATTEND Family Medicine
DX: E04.2 Nontoxic multinodular goiter (principal)
CPT/HCPCS: 76536

== ENCOUNTER → 2025-01-05 | Outpatient (CLI) | payer OTHER ==
[2025-01-05 15:14] LABS: Basophils # (A) 0.06 X 10*3/uL (0.00-0.10); Eosinophils # (A) 0.07 X 10*3/uL (0.04-0.35); Eosinophils % (A) 1.2 %; HCT 40.6 % (37.2-46.3); HGB 13.2 g/dL (12.0-15.0); Lymphocytes # (A) 2.07 X 10*3/uL (0.90-5.00); MCH 29.7 pg (27.0-32.0); MCHC 32.5 g/dL (32.0-37.0); MCV 91.4 FL (80.0-97.0); Mean Platelet Volume 8.8 FL (9.5-12.2); Monocytes # (A) 0.46 X 10*3/uL (0.20-1.00); Monocytes % (A) 7.8 %; NRBC Per 100 WBC 0 X 10*3/uL (0.00-0.01); Neutrophils # (A) 3.24 X 10*3/uL (1.80-7.70); Neutrophils % (A) 54.7 %; Platelet Count 305 X 10*3/uL (140-440); RBC 4.44 X 10*6/uL (4.10-5.20); RDW 13.2 % (11.5-14.5); WBC 5.92 X 10*3/uL (4.50-10.00)
[2025-01-05 15:55] LABS: ALT 17 U/L (8-44); AST 26 U/L (13-35); Albumin 4.6 g/dL (3.8-4.9); Albumin/Globulin Ratio 1.59 Ratio (1.60-3.17); Alkaline Phosphatase 102 U/L (41-126); Blood Urea Nitrogen 13.2 mg/dL (9.0-27.0); Calcium 9.9 mg/dL (8.7-10.3); Carbon Dioxide 22.9 mmol/L (21.6-31.8); Chloride 103 mmol/L (96-109); Chol/HDL Ratio 3.58 Ratio; Globulin 2.9 g/dL (1.6-3.3); Glucose 89 mg/dL (70-110); LDL Cholesterol,Calculated 141.8 mg/dL (0.0-131.0); Potassium 4.6 mmol/L (3.5-5.5); Sodium 136 mmol/L (135-145); Total Bilirubin 0.4 mg/dL (0.3-1.2); Total Protein 7.5 g/dL (6.2-8.2); VLDL Calculation 17.46 mg/dL (5.00-40.00)
== END | disposition home or self-care (01) ==
LOC: LABWHC1 11:20
PROVIDERS: ATTEND Family Medicine
DX: I49.3 Ventricular premature depolarization (principal); E78.2 Mixed hyperlipidemia; E66.9 Obesity, unspecified; E04.2 Nontoxic multinodular goiter; Z68.39 Body mass index [BMI] 39.0-39.9, adult
CPT/HCPCS: 36415; 80053; 80061; 82306; 82533; 83036; 84443; 85025

== ENCOUNTER 2025-03-09 11:53 | Day surgery (SDC) | payer OTHER ==
[2025-03-09] MEDS: LACTATED RINGERS 1,000 ML IV ONE (12:30)
[2025-03-09 12:42] VITALS: TEMP 98
[2025-03-09] MEDS: LACTATED RINGERS 1,000 ML IV SCH (12:42)
[2025-03-09] MEDS ORDERED: PROPOFOL 10 MG/ML 20 ML VIAL IV ONE (14:14)
--- NOTE | 2025-03-09 14:22 | P.GSHP ---
History of Present Illness H&P Date: 03/09/25 Chief Complaint: Colon cancer screening 44-year-old female here for colonoscopy. Patient with personal history of breast cancer. No bowel complaints. No family history of colon cancer. Genetic testing negative. Past Medical History Past Medical History: Cancer, CVA/TIA, Mitral Valve Prolapse (MVP), Neurologic Disorder, Thyroid Disorder Additional Past Medical History / Comment(s): Multiple sclerosis-no current sx., Menstrual related migraine headaches. 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 She has no other history of STDs. Uterine fibroid measuring 1.4 cm(11/19/18). CRYPTOGENIC STROKE on MRI-no symptoms. Thyroid nodules, benign, new dx. triple neg breast cancer, hx. MVP-usually pre-medicates prior to procedures-sees Dr. Gamboa for History of Any Multi-Drug Resistant Organisms: None Reported Past Surgical History: Breast Surgery Additional Past Surgical History / Comment(s): Breast biopsies. Thyroid biopsy. lumbar puncture x2,sherice, port placement,and removed, rt breast lumpectomy,iud Past Anesthesia/Blood Transfusion Reactions: No Reported Reaction Smoking Status: Never smoker - Past Family History Sister(s) Family Medical History: Cancer Additional Family Medical History / Comment(s): Brain cancer. Father Family Medical History: Diabetes Mellitus Additional Family Medical History / Comment(s): Paternal grandmother had a gyne cologic cancer, either cervical cancer or ovarian cancer. Mother Family Medical History: Hyperlipidemia Medications and Allergies Home Medications Medication Instructions Recorded Confirmed Type Baclofen 10 mg PO HS 07/19/19 03/07/25 History Propranolol [Inderal] 20 mg PO BID 07/19/19 03/07/25 History Topiramate [Topamax] 50 mg PO HS 07/19/19 03/07/25 History Losartan [Cozaar] 25 mg PO DAILY 03/07/25 03/07/25 History Allergies Allergy/AdvReac Type Severity Reaction Status Date / Time No Known Allergies Allergy Verified 03/07/25 14:43 Surgical - Exam Vital Signs Temp Pulse Resp BP Pulse Ox 98 F 60 18 110/67 100 03/09/25 12:40 03/09/25 12:40 03/09/25 12:40 03/09/25 12:40 03/09/25 12:40 Physical exam: General: Well-developed, well-nourished HEENT: Normocephalic, sclerae nonicteric Abdomen: Nontender, nondistended Extremities: No edema Neuro: Alert and oriented Assessment and Plan (1) Colon cancer screening Narrative/Plan: Will proceed with colonoscopy at this time. Current Visit: Yes Status: Acute Code(s): Z12.11 - ENCOUNTER FOR SCREENING FOR MALIGNANT NEOPLASM OF COLON SNOMED Code(s): 819007603
--- NOTE | 2025-03-09 14:44 | P.PCN ---
Date of Procedure: 03/09/25 Procedure(s) Performed: PREOPERATIVE DIAGNOSIS: Colon cancer screening with personal history of breast cancer POSTOPERATIVE DIAGNOSIS: Normal exam PROCEDURE: Colonoscopy ANESTHESIA: MAC SURGEON: Kevin Knowles M.D. SPECIMENS: None ENDOSCOPIC PROCEDURE: The patient was placed on the endoscopy table in the left decubitus position. The Olympus colonoscope was inserted into the anus and passed under direct visualization to the base of the cecum. The appendiceal orifice was visualized. From that point the scope was slowly withdrawn inspecting all surfaces carefully. There were no neoplastic inflammatory or polypoid lesions throughout the cecum, ascending, transverse, descending, sigmoid and rectum. There was no visible diverticulosis noted. Digital rectal examination was normal. The patient was taken to the recovery room in stable condition per anesthesia guidelines. RECOMMENDATIONS: Resume diet. Repeat colonoscopy 10 years.
[2025-03-09 15:02] VITALS: BP 116/80; PULSE 54; RESP 16
== END 2025-03-09 15:16 | disposition home or self-care (01) ==
LOC: ORWHC2ENDO 11:53
PROVIDERS: ATTEND Surgery
DX: Z12.11 Encounter for screening for malignant neoplasm of colon (principal); I34.1 Nonrheumatic mitral (valve) prolapse; G35 Multiple sclerosis; Z85.3 Personal history of malignant neoplasm of breast; Z86.73 Personal history of transient ischemic attack (TIA), and cerebral infarction without residual deficits
CPT/HCPCS: 81025; 45378; J2704